=== PATIENT | male | born 1950 | race Two or more races ===

== ENCOUNTER 2020-01-28 08:30 | Day surgery (SDC) | payer MEDICARE, BC ==
[~2020-01-28] VITALS: Ht 185.4 cm; Wt 79.6 kg
[~2020-01-28 08:30] MED LIST: ASPI325EC PO; ASPI81CH; CARV6.25 PO; CYCL10 PO; FOLBIC RF TABL1 EACH PO; HYDCHL12.5 PO; METF500 PO; MULVITB&C PO; NEBI10 PO; OXYACE5T PO; OXYC30ER PO; PERI4; PRED10 PO; TESTOSTERONE TOP; VALS80 PO; VITAMIN D31 ML PO
[2020-01-28] MEDS ORDERED: INSULANPEN SC (09:30)
[2020-01-28] MEDS ORDERED: LIRA0.6P SC (09:31)
--- NOTE | 2020-01-28 09:57 | NUR ---
Ambulatory in Day Surgery History, Chart, Medications and Allergies reviewed before start of procedure. Lungs clear T/O to Auscultation. Patient confirms NPO status and agrees with scheduled surgery.
--- NOTE | 2020-01-28 14:01 | NUR ---
Discharge instructions reviewed with patient. Patient verbalizes understanding. Copy given to patient to take home. Discharged via wheelchair to private car for ride home.
== END 2020-01-28 22:44 | disposition home or self-care (01) ==
LOC: ORSCMMR 08:30 → ORD 10:00 → ORSCMMR 10:00
PROVIDERS: Surgery
PROC: 05H533Z Insertion of Infusion Device into Right Subclavian Vein, Percutaneous Approach (ICD-10-PCS; principal; 2020-01-28 10:00)
PROC: B5161ZA Fluoroscopy of Right Subclavian Vein using Low Osmolar Contrast, Guidance (ICD-10-PCS; principal; 2020-01-28 10:00)
DX: C25.3 Malignant neoplasm of pancreatic duct (principal); I10 Essential (primary) hypertension; J44.9 Chronic obstructive pulmonary disease, unspecified; Z87.891 Personal history of nicotine dependence; B19.20 Unspecified viral hepatitis C without hepatic coma; E11.40 Type 2 diabetes mellitus with diabetic neuropathy, unspecified; Z79.4 Long term (current) use of insulin; Z79.84 Long term (current) use of oral hypoglycemic drugs; Z79.899 Other long term (current) drug therapy
CPT/HCPCS: 77001; 82947; C1788; J0690; J1100; J1642; J2250; J2405; J2704; J3010; J7120

== ENCOUNTER 2020-10-17 12:15 | Emergency (ER) | payer MEDICARE, BC ==
[~2020-10-17] VITALS: Ht 185.4 cm; Wt 73.9 kg
[~2020-10-17 12:15] MED LIST changes: +INSULANPEN SC; +LIRA0.6P SC
[2020-10-17] MEDS ORDERED: HYDMOR2 PO (12:44)
== END 2020-10-17 13:00 | disposition home or self-care (01) ==
LOC: ER 12:15
DX: M54.31 Sciatica, right side (principal); I10 Essential (primary) hypertension; J44.9 Chronic obstructive pulmonary disease, unspecified; Z79.4 Long term (current) use of insulin; Z79.899 Other long term (current) drug therapy; Z87.891 Personal history of nicotine dependence; Z88.2 Allergy status to sulfonamides; Z88.8 Allergy status to other drugs, medicaments and biological substances
CPT/HCPCS: 96374; 99282-25; J1885

== ENCOUNTER 2020-10-21 12:40 | Day surgery (SDC) | payer MEDICARE, BC ==
[~2020-10-21] VITALS: Ht 185.4 cm; Wt 74.8 kg
[~2020-10-21 12:40] MED LIST changes: +HYDMOR2 PO
--- NOTE | 2020-10-21 14:34 | NUR ---
10/21/20 1434 Blayne Peacock [address] CREWS PER ORDER.
== END 2020-10-21 15:15 | disposition home or self-care (01) ==
LOC: ORSCSDS 12:40
PROVIDERS: Orthopaedic Surgery
PROC: 3E0R33Z Introduction of Anti-inflammatory into Spinal Canal, Percutaneous Approach (ICD-10-PCS; principal; 2020-10-21 14:00)
DX: M54.5 Low back pain (principal); M54.16 Radiculopathy, lumbar region; M48.062 Spinal stenosis, lumbar region with neurogenic claudication; I10 Essential (primary) hypertension; F41.8 Other specified anxiety disorders; E05.90 Thyrotoxicosis, unspecified without thyrotoxic crisis or storm; E11.9 Type 2 diabetes mellitus without complications; J44.9 Chronic obstructive pulmonary disease, unspecified; Z87.19 Personal history of other diseases of the digestive system; E03.9 Hypothyroidism, unspecified; Z79.84 Long term (current) use of oral hypoglycemic drugs; Z79.899 Other long term (current) drug therapy
CPT/HCPCS: 82947; J1040

== ENCOUNTER 2020-11-21 07:25 | Emergency (ER) | payer MEDICARE, BC ==
[~2020-11-21] VITALS: Ht 185.4 cm; Wt 74.8 kg
[2020-11-21] MEDS ORDERED: BASAGLAR K100 UNIT/1 SC (07:46)
[2020-11-21] MEDS ORDERED: HYDROCODONE-AC1 EA11 PO (08:10)
[2020-11-22] MEDS ORDERED: Norco 5-325 Ta1 EACH PO (17:44)
[2020-11-22] MEDS ORDERED: IBUP800 PO (17:44)
== END 2020-11-21 08:50 | disposition home or self-care (01) ==
LOC: ER 07:25
DX: M54.31 Sciatica, right side (principal); I10 Essential (primary) hypertension; J44.9 Chronic obstructive pulmonary disease, unspecified; Z87.891 Personal history of nicotine dependence
CPT/HCPCS: 99283

== ENCOUNTER 2020-11-22 16:37 | Emergency (ER) | payer MEDICARE, BC ==
[~2020-11-22] VITALS: Ht 185.4 cm; Wt 74.8 kg
[~2020-11-22 16:37] MED LIST changes: +BASAGLAR K100 UNIT/1 SC; +HYDROCODONE-AC1 EA11 PO
[2020-11-22] MEDS ORDERED: IBUP800 PO (17:44)
[2020-11-22] MEDS ORDERED: Norco 5-325 Ta1 EACH PO (17:44)
== END 2020-11-22 18:30 | disposition home or self-care (01) ==
LOC: ER 16:37
DX: S42.202A Unspecified fracture of upper end of left humerus, initial encounter for closed fracture (principal); I10 Essential (primary) hypertension; J44.9 Chronic obstructive pulmonary disease, unspecified; Z88.8 Allergy status to other drugs, medicaments and biological substances; Z88.2 Allergy status to sulfonamides; Z79.899 Other long term (current) drug therapy; Z79.4 Long term (current) use of insulin; Z87.891 Personal history of nicotine dependence; W07.XXXA Fall from chair, initial encounter
CPT/HCPCS: 29105; 73030; 96372-59; 99283-25; J3010

== ENCOUNTER 2021-09-17 16:01 | Inpatient (IN) | payer MEDICARE, BC ==
[~2021-09-17] VITALS: Ht 185.4 cm; Wt 73.3 kg
[~2021-09-17 16:01] MED LIST changes: +IBUP800 PO; +Norco 5-325 Ta1 EACH PO; -VITAMIN D31 ML PO; +VITAMIN D310 MC4 PO
[2021-09-17 17:54] LABS: Source, Urine Clean Catch
[2021-09-17 17:56] LABS: Hematocrit 44.7 % (37.0-53.0); Hemoglobin 15.6 g/dL (13.5-17.5); Mean Corpuscular HGB 31.5 pg (26.0-34.0); Mean Corpuscular HGB Conc 34.9 g/dL (31.5-36.5); Mean Corpuscular Volume 90 fL (80-100); Mean Platelet Volume 9.7 fL (9.1-12.4); Platelet Count 451 K/mm3 (150-400); RDW Coefficient Variation 13.2 % (11.7-14.2); RDW Standard Deviation 43.8 fL (35.1-46.3); Red Blood Cell Count 4.96 M/mm3 (4.30-5.90)
[2021-09-17 17:57] LABS: BASOPHILS ABSOLUTE AUTO 0.13 K/mm3 (0.00-0.23); BASOPHILS PERCENT AUTO 0 % (0-2); EOSINOPHILS PERCENT AUTO 0 % (0-6); IMMATURE GRAN ABSOLUTE AUTO 0.35 K/mm3 (0.00-0.10); IMMATURE GRAN PERCENT AUTO 1 % (0-1); LYMPHOCYTES ABSOLUTE AUTO 1.58 K/mm3 (0.84-5.20); LYMPHOCYTES PERCENT AUTO 5 % (21-46); MONOCYTES PERCENT AUTO 9 % (4-13); NEUTROPHILS ABSOLUTE AUTO 28.92 K/mm3 (1.96-9.15); NEUTROPHILS PERCENT AUTO 85 % (41-73); White Blood Cell Count 33.88 K/mm3 (4.00-11.30)
[2021-09-17 18:03] LABS: Appearance, Urine Hazy (Clear); Bilirubin, Urine Neg (Neg); Blood, Urine 5+ (Neg); Color, Urine Yellow (P-Yellow); Glucose Qualitative, Urine 4+ (Neg); Ketones, Urine 1+ (Neg); Leukocyte Esterase, Urine 2+ (Neg); Nitrite, Urine Neg (Neg); Protein, Urine 3+ (Neg); Urobilinogen, Urine NORM (Normal)
[2021-09-17 18:20] LABS: Alanine Aminotransfer (ALT/SGP 23 U/L (12-78); Albumin, Blood 3.8 g/dL (3.4-5.0); Alk Phos 63 U/L (50-136); Anion Gap 6 mmol/L (6-16); Aspartate Aminotrans (AST/SGOT 12 U/L (12-37); Bilirubin, Total 1.1 mg/dL (0.1-1.0); Blood Urea Nitrogen 18 mg/dL (8-24); Bun/Creatinine Ratio 30.7 (12.0-20.0); CO2, Blood 23 mmol/L (21-32); Calcium, Blood 9.3 mg/dL (8.5-10.1); Chloride, Blood 105 mmol/L (98-108); Creatinine, Blood 0.59 mg/dL (0.60-1.20); Globulin, Blood 3.9 g/dL (2.2-4.0); Glomerular Filtration Rate >60 (60-); Glucose, Blood 287 mg/dL (70-99); Potassium, Blood 3.4 mmol/L (3.5-5.5); Sodium, Blood 134 mmol/L (136-145); Total Protein, Blood 7.7 g/dL (6.4-8.2)
[2021-09-17 18:41] LABS: White Blood Cells, Urine 25-50 /hpf (0-5)
[2021-09-17 18:42] LABS: Bacteria Many /hpf; Squamous Epithelial Cells Few /hpf (Few)
[2021-09-17 20:44] LABS: Influenza A, PCR NEGATIVE (NEGATIVE); Influenza B, PCR NEGATIVE (NEGATIVE); Resp Syncytial Virus, PCR NEGATIVE (NEGATIVE); SARS-Cov-2 (COVID-19) PCR, MMC NEGATIVE (NEGATIVE)
[2021-09-18 05:50] LABS: Hematocrit 40.2 % (37.0-53.0); Mean Corpuscular HGB 31.7 pg (26.0-34.0); Mean Corpuscular HGB Conc 34.8 g/dL (31.5-36.5); Mean Corpuscular Volume 91 fL (80-100); Mean Platelet Volume 9.7 fL (9.1-12.4); Platelet Count 368 K/mm3 (150-400); RDW Coefficient Variation 13.4 % (11.7-14.2); RDW Standard Deviation 45.6 fL (35.1-46.3); Red Blood Cell Count 4.42 M/mm3 (4.30-5.90); White Blood Cell Count 34.57 K/mm3 (4.00-11.30)
[2021-09-18 06:16] LABS: BAND PERCENT MAN 8 % (0-8); BASOPHILS ABSOLUTE MAN 0.34 K/mm3 (0.00-0.23); BASOPHILS PERCENT MAN 1 % (0-2); EOSINOPHILS PERCENT MAN 0 % (0-6); LYMPHOCYTES ABSOLUTE MAN 1.72 K/mm3 (0.84-5.20); LYMPHOCYTES PERCENT MAN 5 % (21-46); MONOCYTES ABSOLUTE MAN 2.41 K/mm3 (0.16-1.47); MONOCYTES PERCENT MAN 7 % (4-13); MYELOCYTE ABSOLUTE MAN 0.34 K/mm3 (0.00-0.00); MYELOCYTE PERCENT MAN 1 % (0-0); NEUTROPHILS ABSOLUTE MAN 29.73 K/mm3 (1.96-9.15); SEG NEUTROPHILS PERCENT MAN 78 % (41-73); TOTAL CELLS COUNTED 100
[2021-09-18 06:45] LABS: Alanine Aminotransfer (ALT/SGP 20 U/L (12-78); Albumin, Blood 2.9 g/dL (3.4-5.0); Alk Phos 69 U/L (50-136); Anion Gap 9 mmol/L (6-16); Aspartate Aminotrans (AST/SGOT 12 U/L (12-37); Bilirubin, Total 1.1 mg/dL (0.1-1.0); Blood Urea Nitrogen 14 mg/dL (8-24); Bun/Creatinine Ratio 25.5 (12.0-20.0); CO2, Blood 23 mmol/L (21-32); Calcium, Blood 8.6 mg/dL (8.5-10.1); Chloride, Blood 106 mmol/L (98-108); Creatinine, Blood 0.55 mg/dL (0.60-1.20); Glomerular Filtration Rate >60 (60-); Glucose, Blood 243 mg/dL (70-99); Potassium, Blood 3.7 mmol/L (3.5-5.5); Sodium, Blood 138 mmol/L (136-145); Total Protein, Blood 5.9 g/dL (6.4-8.2)
[2021-09-18] MEDS ORDERED: OZEMPIC1 MG/0.71 SC (12:39)
--- NOTE | 2021-09-18 18:47 | NUR ---
SHIFT SUMMARY: PATIENT ADMIT AT 1220 TODAY ABLE TO STAND AND TRANSFER TO BED. ALERT AND ORIENTED X4. ABLE TO MOVE AND TURN SELF IN BED. PERRLA. 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 REPORTS NUMBNESS AND TINGLING IN HANDS AND FEET FROM CHRONIC NEUROPATHY. TELE SHOWING SINUS TACH WITH HR 90-110'S. DENIES CHEST PAIN/PRESSURE. VITAL SIGNS STABLE. ON ROOM AIR, LUNGS SOUNDING CLEAR. NO COUGH AT THIS TIME. MODERATE ABDOMINAL DISTENTION. CHOLECYSTECTOMY [address] SCAN OF ABDOMEN TODAY. NO NAUSEA. USING URINAL FREQUENTLY IN BED. UTI SYMPTOMS OF URGENCY AND FREQUENCY. SKIN OVERALL FRAGILE AND PALE. ACHS BLOOD SUGARS. HOME MEDS ORDERED. ANTIBIOTICS INFUSED. PATIENT COMPLAINS OF SCIATICA PAIN, MEDICATED PER EMAR AND PAIN SLOWLY DECREASING. CALL LIGHT IN REACH. DENIES NEEDS AT THIS TIME. WILL CONTINUE TO MONITOR AND REPORT OFF TO ONCOMING RN.
[2021-09-19 04:02] LABS: BASOPHILS ABSOLUTE AUTO 0.13 K/mm3 (0.00-0.23); BASOPHILS PERCENT AUTO 1 % (0-2); EOSINOPHILS PERCENT AUTO 2 % (0-6); Hematocrit 37.1 % (37.0-53.0); Hemoglobin 12.8 g/dL (13.5-17.5); IMMATURE GRAN ABSOLUTE AUTO 0.21 K/mm3 (0.00-0.10); IMMATURE GRAN PERCENT AUTO 1 % (0-1); LYMPHOCYTES ABSOLUTE AUTO 1.53 K/mm3 (0.84-5.20); LYMPHOCYTES PERCENT AUTO 6 % (21-46); MONOCYTES ABSOLUTE AUTO 1.81 K/mm3 (0.16-1.47); MONOCYTES PERCENT AUTO 7 % (4-13); Mean Corpuscular HGB 31.4 pg (26.0-34.0); Mean Corpuscular HGB Conc 34.5 g/dL (31.5-36.5); Mean Corpuscular Volume 91 fL (80-100); NEUTROPHILS PERCENT AUTO 84 % (41-73); Platelet Count 328 K/mm3 (150-400); RDW Coefficient Variation 13.2 % (11.7-14.2); Red Blood Cell Count 4.08 M/mm3 (4.30-5.90); White Blood Cell Count 26.08 K/mm3 (4.00-11.30)
[2021-09-19 04:44] LABS: Alanine Aminotransfer (ALT/SGP 21 U/L (12-78); Albumin, Blood 2.4 g/dL (3.4-5.0); Albumin/Globulin Ratio 0.8 (0.8-1.8); Alk Phos 64 U/L (50-136); Anion Gap 8 mmol/L (6-16); Aspartate Aminotrans (AST/SGOT 13 U/L (12-37); Bilirubin, Direct 0.3 mg/dL (0.0-0.3); Bilirubin, Indirect 0.6 mg/dL (0.1-0.7); Bilirubin, Total 0.9 mg/dL (0.1-1.0); Blood Urea Nitrogen 11 mg/dL (8-24); Bun/Creatinine Ratio 22.6 (12.0-20.0); CO2, Blood 25 mmol/L (21-32); Calcium, Blood 8.3 mg/dL (8.5-10.1); Chloride, Blood 104 mmol/L (98-108); Creatinine, Blood 0.49 mg/dL (0.60-1.20); Glomerular Filtration Rate >60 (60-); Glucose, Blood 199 mg/dL (70-99); Potassium, Blood 3.7 mmol/L (3.5-5.5); Sodium, Blood 137 mmol/L (136-145); Total Protein, Blood 5.4 g/dL (6.4-8.2)
--- NOTE | 2021-09-19 09:25 | NUR ---
PATIENT ALERT AND ORIENTED X4. NEURO WNL. DEAF IN LEFT EAR. [place] IN RIGHT EAR. NUMBNESS AND TINGLING TO HANDS AND FEET. SCIATICA PAIN. ON ROOM AIR, LUNGS SOUNDING CLEAR. TELE SHOWING SINUS RHYTHM WITH HR 60-70'S. DENIES CHEST PAIN/PRESSURE. VITAL SIGNS STABLE. NO SIGNS OF EDEMA. DENIES ABDOMINAL PAIN/NAUSEA. MODERATE ABDOMINAL DISTENTION, PATIENT STATES NORMAL. BOWEL CARE MEDS. USING URINAL IN BED. SMALL AMOUNTS OF URINE SAVANNA COLORED. CALL LIGHT IN REACH. SBA ASSIST. DENTURES AND GLASSES IN PLACE. WILL CONTIUE TO [facility]. ACHS BLOOD SUGARS. DENIES NEEDS AT THIS TIME.
--- NOTE | 2021-09-19 13:34 | NUR ---
UPDATE: BP ELEVATED. DR. DAMON CALLED AND UPDATED. NEW ORDERS PLACE. HYDRALAZINE GIVEN. UPON RECHECK, BP WNL. NEW IV PLACED. PATIENT DENIES NEEDS AT THIS TIME. CALL LIGHT IN REACH. WILL CONTINUE TO MONITOR.
--- NOTE | 2021-09-19 18:58 | NUR ---
SHIFT SUMMARY: NO ACUTE CHANGES. REMAINS ON ROOM AIR. ANTIBIOTICS INFUSED. CONTINUES TO HAVE SCIATICA AND NECK PAIN. PAIN MEDICATIONS HELPING. TELE SHOWING HR UP TO 130'S X1 WHEN UP WALKING AROUND ROOM. DENIES NEEDS AT THIS TIME. WILL CONTINUE TO MONITOR AND REPORT OFF.
--- NOTE | 2021-09-19 22:05 | NUR ---
ASSUMED CARE OF PATIENT AT 1900. A/OX4. REPORTS CHRONIC BACK PAIN 04/27 THAT IS BEING MEDICATED PER EMAR. DEAF IN L EAR AND A BIT [place] IN R EAR. REPORTS HX OF NEUROPATHY W/ NUMBNESS/TINGLING IN EXTREMITIES. MAINTAINS ABOVE 95% ON RA. BP ELEVATED WITH SBP IN 180'S, MEDICATED PER EMAR. REPORTS ABLE TO HAVE BM TODAY, BUT STILL HAS URINARY URG/FREQ WITH CLEAR/YELLOW URINE OUTPUT IN URINAL. REDNESS/SWELLING IN R ARM DUE TO OLD IV THAT WAS DC'D. WILL UPDATE CHANGES OCCUR.
[2021-09-20 03:57] LABS: BASOPHILS ABSOLUTE AUTO 0.07 K/mm3 (0.00-0.23); BASOPHILS PERCENT AUTO 1 % (0-2); EOSINOPHILS ABSOLUTE AUTO 0.22 K/mm3 (0.00-0.68); EOSINOPHILS PERCENT AUTO 2 % (0-6); Hematocrit 38.9 % (37.0-53.0); Hemoglobin 13.5 g/dL (13.5-17.5); IMMATURE GRAN PERCENT AUTO 1 % (0-1); LYMPHOCYTES ABSOLUTE AUTO 0.74 K/mm3 (0.84-5.20); LYMPHOCYTES PERCENT AUTO 6 % (21-46); MONOCYTES ABSOLUTE AUTO 1.06 K/mm3 (0.16-1.47); MONOCYTES PERCENT AUTO 8 % (4-13); Mean Corpuscular HGB 30.8 pg (26.0-34.0); Mean Corpuscular HGB Conc 34.7 g/dL (31.5-36.5); Mean Corpuscular Volume 89 fL (80-100); Mean Platelet Volume 10.1 fL (9.1-12.4); NEUTROPHILS ABSOLUTE AUTO 11.06 K/mm3 (1.96-9.15); NEUTROPHILS PERCENT AUTO 83 % (41-73); Platelet Count 358 K/mm3 (150-400); RDW Coefficient Variation 13.1 % (11.7-14.2); RDW Standard Deviation 42.9 fL (35.1-46.3); Red Blood Cell Count 4.38 M/mm3 (4.30-5.90); White Blood Cell Count 13.25 K/mm3 (4.00-11.30)
[2021-09-20 04:21] LABS: Albumin, Blood 2.5 g/dL (3.4-5.0); Anion Gap 8 mmol/L (6-16); Blood Urea Nitrogen 10 mg/dL (8-24); Bun/Creatinine Ratio 19.8 (12.0-20.0); CO2, Blood 25 mmol/L (21-32); Calcium, Blood 8.4 mg/dL (8.5-10.1); Chloride, Blood 102 mmol/L (98-108); Creatinine, Blood 0.51 mg/dL (0.60-1.20); Glomerular Filtration Rate >60 (60-); Glucose, Blood 198 mg/dL (70-99); Phosphorus, Blood 2.6 mg/dL (2.5-4.9); Potassium, Blood 3.1 mmol/L (3.5-5.5); Sodium, Blood 135 mmol/L (136-145)
[2021-09-20] MEDS ORDERED: LISI5 PO (14:50)
[2021-09-20] MEDS ORDERED: AMOCLA875 PO (14:50)
[2021-09-20] MEDS ORDERED: VISBIOME 112.51 EACH PO (14:54)
--- NOTE | 2021-09-20 15:37 | NUR ---
PT DISCHARGE TO HOME WITH DISCHARGE ORDERS. PT WAS SEEN BY DR WANG PRIOR TO DISCHARGE, STARTED ON AUGMENTIN PO FOR UTI AND POSS BLOOD INFECTION, PT TO FOLLOW UP WITH DR WANG OUTPATIENT. DISCHARGE INSTRUCTION AND MEDICATION DISCLOSED WITH THE PT, PT VERBALIZED UNDERSTANDING. ALL BELONGINGS SENT WITH PT, ACCOMPANIED AMBULATORY FOR TRANSPORT.
[2021-09-21 18:05] LABS: Performing Lab LCA; Test Name 183402 182857
== END 2021-09-20 15:16 | disposition home or self-care (01) | DRG 872 ==
LOC: ER 16:01 → ERHOLD 20:34 → PCU 20:34
PROVIDERS: Emergency Medicine; Family Medicine; Physician Assistant; ADMIT Internal Medicine
DX: A41.51 Sepsis due to Escherichia coli [E. coli] (principal); N39.0 Urinary tract infection, site not specified; E87.1 Hypo-osmolality and hyponatremia; Z20.822 Contact with and (suspected) exposure to COVID-19; E87.6 Hypokalemia; K59.00 Constipation, unspecified; D64.9 Anemia, unspecified; I10 Essential (primary) hypertension; E89.0 Postprocedural hypothyroidism; N40.0 Benign prostatic hyperplasia without lower urinary tract symptoms; J44.9 Chronic obstructive pulmonary disease, unspecified; Z90.49 Acquired absence of other specified parts of digestive tract; E11.65 Type 2 diabetes mellitus with hyperglycemia; Z85.07 Personal history of malignant neoplasm of pancreas; Z90.411 Acquired partial absence of pancreas; Z88.2 Allergy status to sulfonamides; Z88.8 Allergy status to other drugs, medicaments and biological substances; Z28.21 Immunization not carried out because of patient refusal; Z79.4 Long term (current) use of insulin; Z79.899 Other long term (current) drug therapy; Z98.890 Other specified postprocedural states
CPT/HCPCS: 0241U; 36415; 71045; 74177; 80053; 80069; 81001; 82248; 82947; 83605; 83690; 84100; 85025; 87040; 87077; 87086; 87186; 93005; 93010; 96365; 96375; 99285-25; A9270; J0360; J0696; J1650; J1815; J2405; J3480; J7030; Q9967

== ENCOUNTER 2024-09-26 18:25 | Emergency (ER) | payer MEDICARE, BC ==
[~2024-09-26] VITALS: Ht 185.4 cm; Wt 70.3 kg
[~2024-09-26 18:25] MED LIST changes: +AMOCLA875 PO; +BASAGLAR K100 UNIT/3 SC; +LISI5 PO; +OZEMPIC1 MG/0.71 SC; +VISBIOME 112.51 EACH PO
[2024-09-26 19:17] LABS: BASOPHILS ABSOLUTE AUTO 0.05 K/mm3 (0.00-0.23); BASOPHILS PERCENT AUTO 0 % (0-2); EOSINOPHILS PERCENT AUTO 0 % (0-6); Hematocrit 40.6 % (37.0-53.0); Hemoglobin 13.9 g/dL (13.5-17.5); IMMATURE GRAN ABSOLUTE AUTO 0.05 K/mm3 (0.00-0.10); IMMATURE GRAN PERCENT AUTO 0 % (0-1); LYMPHOCYTES ABSOLUTE AUTO 1.54 K/mm3 (0.84-5.20); LYMPHOCYTES PERCENT AUTO 12 % (21-46); MONOCYTES ABSOLUTE AUTO 0.47 K/mm3 (0.16-1.47); MONOCYTES PERCENT AUTO 4 % (4-13); Mean Corpuscular HGB 30.8 pg (26.0-34.0); Mean Corpuscular HGB Conc 34.2 g/dL (31.5-36.5); Mean Corpuscular Volume 90 fL (80-100); Mean Platelet Volume 10.3 fL (9.1-12.4); NEUTROPHILS ABSOLUTE AUTO 10.57 K/mm3 (1.96-9.15); NEUTROPHILS PERCENT AUTO 83 % (41-73); Platelet Count 328 K/mm3 (150-400); RDW Coefficient Variation 12.2 % (11.7-14.2); RDW Standard Deviation 40.3 fL (35.1-46.3); Red Blood Cell Count 4.51 M/mm3 (4.30-5.90); White Blood Cell Count 12.68 K/mm3 (4.00-11.30)
[2024-09-26 19:35] LABS: Albumin, Blood 3.7 g/dL (3.4-5.0); Albumin/Globulin Ratio 0.9 (0.8-1.8); Bilirubin, Total 0.7 mg/dL (0.1-1.0); Bun/Creatinine Ratio 22.9 (12.0-20.0); Calcium, Blood 9.7 mg/dL (8.5-10.1); Creatinine, Blood 0.74 mg/dL (0.60-1.20); Potassium, Blood 3.8 mmol/L (3.5-5.5); Total Protein, Blood 7.7 g/dL (6.4-8.2)
[2024-09-26] MEDS ORDERED: Ketorolac Tromethamine 30mg Vial IV ONE (23:35)
[2024-09-27] MEDS ORDERED: RX Prepack 6 Tabs Oxycodone 5mg UD ONE (02:45)
[2024-09-27] MEDS ORDERED: NS 1,000 ML IV SCH (02:45)
[2024-09-27] MEDS ORDERED: Roxicodone15 MG PO (02:46)
[2024-09-27 03:04] VITALS: BP 189/106
== END 2024-09-27 03:45 | disposition home or self-care (01) ==
LOC: ER 18:25
PROVIDERS: Student in an Organized Health Care Education/Training Program
DX: R07.89 Other chest pain (principal); C25.9 Malignant neoplasm of pancreas, unspecified; I10 Essential (primary) hypertension; J44.9 Chronic obstructive pulmonary disease, unspecified; Z79.4 Long term (current) use of insulin; Z79.84 Long term (current) use of oral hypoglycemic drugs; Z79.899 Other long term (current) drug therapy; Z88.2 Allergy status to sulfonamides; Z88.8 Allergy status to other drugs, medicaments and biological substances
CPT/HCPCS: 71046; 71260; 80053; 83690; 84484; 85025; 93005; 93010; 96374; 99285-25; A9270; J1885; J7030; Q9967

== ENCOUNTER 2024-12-08 13:34 | Observation (INO) | payer MEDICARE, BC ==
[~2024-12-08] VITALS: Ht 185.4 cm; Wt 54.4 kg
[~2024-12-08 13:34] MED LIST changes: -BASAGLAR K100 UNIT/3 SC; +Roxicodone15 MG PO
[2024-12-08] MEDS ORDERED: Ativan1 MG PO (15:08)
[2024-12-08] MEDS ORDERED: Seroquel Xr50 MG PO (15:09)
[2024-12-08] MEDS ORDERED: OLAN5 PO (15:09)
[2024-12-08] MEDS ORDERED: HYDMOR4 PO (15:11)
[2024-12-08 16:47] LABS: Source, Urine Clean Catch
[2024-12-08 16:53] LABS: Bilirubin, Urine Neg (Neg); Blood, Urine 2+ (Neg); Glucose Qualitative, Urine 4+ (Neg); Ketones, Urine Neg (Neg); Leukocyte Esterase, Urine 3+ (Neg); Nitrite, Urine Neg (Neg); Protein, Urine 1+ (Neg); Specific Gravity, Urine 1.015 (1.003-1.022); Urobilinogen, Urine NORM (Normal)
[2024-12-08 16:56] LABS: BASOPHILS ABSOLUTE AUTO 0.07 K/mm3 (0.00-0.23); BASOPHILS PERCENT AUTO 1 % (0-2); EOSINOPHILS ABSOLUTE AUTO 0.08 K/mm3 (0.00-0.68); EOSINOPHILS PERCENT AUTO 1 % (0-6); Hematocrit 35.1 % (37.0-53.0); IMMATURE GRAN ABSOLUTE AUTO 0.04 K/mm3 (0.00-0.10); IMMATURE GRAN PERCENT AUTO 0 % (0-1); LYMPHOCYTES ABSOLUTE AUTO 1.41 K/mm3 (0.84-5.20); LYMPHOCYTES PERCENT AUTO 13 % (21-46); MONOCYTES ABSOLUTE AUTO 0.61 K/mm3 (0.16-1.47); MONOCYTES PERCENT AUTO 6 % (4-13); Mean Corpuscular HGB 31.3 pg (26.0-34.0); Mean Corpuscular HGB Conc 34.2 g/dL (31.5-36.5); Mean Corpuscular Volume 91 fL (80-100); Mean Platelet Volume 11.3 fL (9.1-12.4); NEUTROPHILS ABSOLUTE AUTO 8.34 K/mm3 (1.96-9.15); NEUTROPHILS PERCENT AUTO 79 % (41-73); Platelet Count 351 K/mm3 (150-400); RDW Coefficient Variation 14.6 % (11.7-14.2); RDW Standard Deviation 48.7 fL (35.1-46.3); Red Blood Cell Count 3.84 M/mm3 (4.30-5.90); White Blood Cell Count 10.55 K/mm3 (4.00-11.30)
[2024-12-08 17:00] LABS: Appearance, Urine Hazy (Clear); Color, Urine Yellow (P-Yellow); White Blood Cells, Urine 25-50 /hpf (0-5)
[2024-12-08 17:01] LABS: Bacteria Few /hpf; Squamous Epithelial Cells Rare /hpf (Few)
[2024-12-08 17:04] LABS: U Amphetamine Screen Not Detected; U Barbituate Screen Not Detected; U Benzodiazapine Screen DETECTED; U Buprenorphine Screen Not Detected; U Cannabinoids Screen Not Detected; U Cocaine Screen Not Detected; U Methadone Screen Not Detected; U Methamphetamine Screen Not Detected; U Opiates Screen DETECTED; U Oxycodone Screen Not Detected; U Phencyclidine Screen Not Detected
[2024-12-08 17:05] LABS: Acetaminophen, Random <2.0 ug/mL (10.0-30.0); Alanine Aminotransfer (ALT/SGP 19 U/L (12-78); Albumin, Blood 3.2 g/dL (3.4-5.0); Albumin/Globulin Ratio 1.1 (0.8-1.8); Alk Phos 71 U/L (50-136); Anion Gap 15 mmol/L (3-11); Aspartate Aminotrans (AST/SGOT 18 U/L (12-37); Bilirubin, Total 0.7 mg/dL (0.1-1.0); Blood Urea Nitrogen 11 mg/dL (8-24); Bun/Creatinine Ratio 17.9 (12.0-20.0); CO2, Blood 24 mmol/L (21-32); Calcium, Blood 8.7 mg/dL (8.5-10.1); Chloride, Blood 98 mmol/L (98-108); Creatinine, Blood 0.61 mg/dL (0.60-1.20); Ethanol (Alcohol), Blood, Med <3 mg/dL; Glomerular Filtration Rate 100 (60-); Glucose, Blood 418 mg/dL (70-99); Potassium, Blood 3.7 mmol/L (3.5-5.5); Salicylate <1.7 mg/dL (2.8-20.0); Sodium, Blood 133 mmol/L (136-145); Total Protein, Blood 6.2 g/dL (6.4-8.2)
[2024-12-08] MEDS ORDERED: HYDROmorphone HCl 4 MG Tab PO ONE (20:10)
[2024-12-08] MEDS ORDERED: HYDROmorphone HCl 2 MG Tab PO ONE (20:15)
[2024-12-08] MEDS ORDERED: HYDROmorphone HCl 2 MG Tab PO PRN (20:40)
[2024-12-08] MEDS ORDERED: Cefdinir 300 MG Cap PO SCH (21:00)
[2024-12-09] MEDS ORDERED: OxyCODONE HCL 5 MG TAB PO PRN (18:55)
[2024-12-09] MEDS ORDERED: FentaNYL Citrate 50 MCG/ML 2 ML Injection IV PRN (18:55)
[2024-12-09] MEDS ORDERED: OxyCODONE HCL 10 MG TABCR PO SCH (18:59)
[2024-12-09] MEDS ORDERED: LORazepam 1 MG Tab PO PRN ×2 (19:00→21:25)
[2024-12-09] MEDS ORDERED: Ketorolac Tromethamine 15mg Vial IV ONE (19:00)
[2024-12-09] MEDS ORDERED: QUEtiapine Fumarate 25 MG Tab PO PRN (19:00)
[2024-12-09] MEDS ORDERED: FentaNYL Citrate 50 MCG/ML 2 ML Injection IV ONE (19:00)
[2024-12-09] MEDS ORDERED: Ketorolac Tromethamine 30mg Vial IV ONE (19:25)
[2024-12-09] MEDS ORDERED: Docusate Sodium/Senna 1 Tab PO SCH (21:00)
[2024-12-09] MEDS ORDERED: QUEtiapine Fumarate 50 MG TAB PO SCH (21:00)
[2024-12-10 05:55] VITALS: BP 152/80
[2024-12-10] MEDS ORDERED: Insulin Glargine-Yfgn 100 Unit/mL 3 ML SYR SC ONE (07:00)
[2024-12-10 07:07] VITALS: BP 131/78
[2024-12-10] MEDS ORDERED: Insulin Human Lispro 100 Units/ML 3ML Syringe SC SCH (07:30)
[2024-12-10] MEDS ORDERED: Lisinopril 5 MG Tab PO SCH (09:00)
[2024-12-10] MEDS ORDERED: Polyethylene Glycol 3350 17 gm PO SCH (09:00)
[2024-12-10 16:04] VITALS: BP 120/63
--- NOTE | 2024-12-10 17:17 | NUR ---
Spiritual care visit attempted. Patient is lying in bed and resting. He immediately states that he is sleepy and would for me to come back tomorrow. He then asks me about my buddhism affiliation and creditials and determines that tomorrow would still be ok.
--- NOTE | 2024-12-10 18:23 | NUR ---
SHIFT SUMMARY PATIENT ALERT AND INTERACTIVE BUT HAVING PERIODS OF WORD SALAD OR SLOW RESPONSES. PATIENT ANXIOUS AT TIMES AND NOTEABLE TREMORS WHEN ATTEMPTING TO DO THINGS. PATIENT REFUSING INSULIN AND STOOL SOFTENERS. PATIENT STATES "I AM DYING SO WHO CARES" PATIENT REQUESTING PAIN MEDS THROUGHOUT THE DAY. PATIENT MEDICATED PER MAR FOR PAIN AND ANXIETY. PATIENT VERBALIZING THAT HE IS OK WITH NOT GOING BACK HOME BUT DOES WANT TO GO SOMEWHERE THAT IS COMFORTABLE AND CALM.
[2024-12-10 19:17] VITALS: BP 125/79
[2024-12-10 20:45] LABS: Glucose, Blood 544 mg/dL (70-99)
[2024-12-10] MEDS ORDERED: Lactobacil 2-S.Thermo-Bifido 1 1 Cap PO SCH (21:00)
--- NOTE | 2024-12-10 21:02 | NUR ---
ACCU CHECK WAS 475 AT , BUT PT REFUSED TO TAKE INSULIN COVERAGE, MD WAS NOTIFIED AND STATED IF PT WOULD TAKE PO MED HE WOULD ORDER IT. CALL PLACED TO MD PT STATED HE WOULD BE WILLING TO TAKE MED SUCH METFORMIN. SEE MAR FOR RESULTS/DETAILS
[2024-12-10] MEDS ORDERED: GlipiZIDE 5 MG Tab PO ONE (21:30)
--- NOTE | 2024-12-11 03:43 | NUR ---
TRAINING EXECUTIVE SUMMARY VSS. AFFECT AND BEHAVIOR EASILY AGIATED. COOPERATIVE WITH CAARE OF VITAL SIGNS, ACCU CHECKS AND MOST MEDS, BUT VERY ADFAMANT NOT TO TAKE INSULIN FOR HIGH ACCU CHECK. (WAS 475), NOTIFIED AND PO GLIPIZIDE ORDERED X 1 AND PT ACCEPTED IT. HAS BEEN RESTING QUIETLY AT INTERVALS OTHERWISE. 1:1 SITTER NEAR BEDSIDE FOR POTENTIAL BEHAVIORAL ISSUES. CALL LIGHT IN REACH, RAILS UP X 2 AND BED IN LOW POSITION FOR SAFETY. ABLE TO REPOSITION SELF IN BED FOR COMFORT. WILL CONT TO MONITOR
[2024-12-11 04:57] VITALS: BP 123/58
[2024-12-11 08:02] VITALS: BP 124/72
[2024-12-11] MEDS ORDERED: GlipiZIDE 10 MG Tab PO SCH (13:00)
[2024-12-11 14:22] VITALS: BP 137/71
[2024-12-11] MEDS ORDERED: BASAGLAR K100 UNIT/3 SC (17:12)
--- NOTE | 2024-12-11 18:20 | NUR ---
SHIFT SUMMARY PATIENT ALERT AND INTERACTIVE BUT WITHDRAWN. PATIENT ABLE TO AMBULATE IN ROOM INDEPENDENTLY. PATIENT REQUESTING PAIN MEDS PERIODICALLY THROUGHOUT SHIFT. PATIENT COOPERATIVE WITH CARE. PATIENT ASKING TO BE INVOLVED IN PLACEMENT. PATIENT WANTING TO GO SOMEWHERE CALM. PATIENT STATES THAT HIS HOME LIFE IS VERY STRESSFUL. PATIENT REPORTS GLASSES MISSING BUT DOES NOT WANT US TO CALL FAMILY BECAUSE OF ISSUES. PATIENT HAVING LESS WORD SALAD AND ABLE TO GET THOUGHTS OUT TODAY. TREMORS NOTED. PATIENT STATES THAT HE HAS PARKINSONS. PATIENT CONTINUES TO REFUSE INSULIN BUT IS WILLING TO TAKE ORAL DIABETIC MEDS. PATIENT ALSO REFUSING STOOL SOFTENERS AT THIS TIME
[2024-12-11 19:09] VITALS: BP 143/73
--- NOTE | 2024-12-11 21:30 | NUR ---
BEDTIME CBG 355, HOSPITALIST NOTIFIED AND 4 UNITS SHORT ACTING GIVEN PER SLIDING SCALE.
[2024-12-12 03:35] VITALS: BP 159/98
--- NOTE | 2024-12-12 05:26 | NUR ---
SHIFT SUMMARY NOC PT A/O X 3. FORGETFUL AND STRUGGLES TO FIND WORDS AT TIMES. PT HS CBG 355 AND PT REFUSED INSULIN. PT RECEIVING PAIN RX Q2H FOR PAIN MANAGEMENT. PT ALSO GIVNE ATIVAN X 1 FOR ANXIETY. PT HAS NO IV ACCESS ORDER IN PLACE. PT HAS BEEN ACCEPTED TO [facility], BUT WAITING ON BED SPACE. PT CURRENTLY RESTING WITH BED IN LOWEST POSITION, AND CALL LIGHT WITHIN
[2024-12-12 07:59] VITALS: BP 162/81
[2024-12-12 15:31] VITALS: BP 162/73
--- NOTE | 2024-12-12 18:00 | NUR ---
SHIFT SUMMARY PT ALERT, CONFUSED AT TIMES. HAVING PERIODS EXPRESSING NEEDS AND WORD SALAD. PATIENT ABLE TO AMBULATE IN ROOM INDEPENDENTLY. PATIENT REQUESTING PAIN MEDS FREQUENTLY THROUGHOUT SHIFT. SON IN FOR VISIT AND BROUGHT SOME SWEATS FOR PATIENT. PATIENT CONTINUES TO REFUSE STOOL SOFTENERS AND INSULIN BUT WILLING TO TAKE ALL OTHER MEDICATIONS. PATIENT NEEDING REMINDED WHEN NEXT PAIN MEDICATION AND ANXIETY MEDICATION DOSES ARE AVAILABLE. PATIENT EATING AND DRINKING,
[2024-12-12 21:00] VITALS: BP 150/78
[2024-12-13 02:20] VITALS: BP 157/85
--- NOTE | 2024-12-13 05:27 | NUR ---
SHIFT SUMMARY PT ADMITTED FOR DECLINING MENTAL STATE. PT TRIED TO BURN HOUSE DOWN. PT HAS HX OF PANCREATIC CANCER, HTN, COPD, T2DM, AND BPH. PT IS IND AND ABLE TO AMBULATE TO RESTROOM BY SELF. PT APPEARED TO SLEEP ON AND OFF. APPROPRIATE WITH CALL LIGHT. ABLE TO MAKE NEEDS KNOWN. PT TAKES MEDS WHOLE WITH WATER. PT IS AWAITING PLACEMENT. PT REFUSES INSULIN TREATMENT. BED IS IN LOW POSITION, RAILS TIMES TWO, AND CALL LIGHT IS WITHIN REACH.
[2024-12-13 07:52] VITALS: BP 130/83
[2024-12-13 15:32] VITALS: BP 123/72
[2024-12-13] MEDS ORDERED: MetFORMIN HCl 500 mg PO SCH (17:00)
[2024-12-13 19:24] VITALS: BP 145/79
--- NOTE | 2024-12-13 19:38 | NUR ---
[facility] [employer] VISITED FOR POSSIBLE PLACEMENT, PLEASANT TO CARE, EASILY CONFUSED AND BECOMES POARAQNOID AND IRRITATED. HARD TO REDIRECT, MEDICATED WITH OCY AND ATIVAN TODAY, REFUSED SQ INSULIN SHOTS, RECORDED BM ON 12/12/24, CALL LIGHT WITH IN REACH, REPORT GIVEN TO MATT ACKERMAN
[2024-12-14 04:40] VITALS: BP 162/94
--- NOTE | 2024-12-14 07:22 | NUR ---
SHIFT SUMMARY; PATIENT SLEPT IN LONG INTERVALS, MEDICATED WITH ATIVAN & OXY TWICE. DRANK ENSURE SHAKE DURING THE NIGHT.
[2024-12-14 08:07] VITALS: BP 151/89
--- NOTE | 2024-12-14 09:16 | NUR ---
CALNAYLA JUAREZ- PT REFUSING INSULIN, PT STATES HE IS DYING AND DOESN'T WANT INSULIN. SPOKE TO AND RECIEVED ORDERS TO DC BG CHECKS AND INSULIN
--- NOTE | 2024-12-14 16:33 | NUR ---
INITIAL PALLIATIVE CARE VISIT: MET WITH PT AND FAMILY ( AND SON) IN ROOM. PT APPEARS ANXIOUS AND HE IS TREMULOUS. HE IS ABLE TO STATE HIS PAIN LEVEL IS 9/10. CALL PLACED TO PRIMARY RN AND SHE STATED SHE HAD GIVEN OXYCODONE AT 1500 AND HE IS NOT DUE FOR MORE MEDICATION YET. DISCUSSED THE ISSUES THAT BROUGHT PT TO THE HOSPITAL. [facility] AND THEY WERE MANAGING PT SYMPTOMS AND TITRATING MEDICATIONS. PT STATED HE FELT LIKE PAIN AND CONFUSION DROVE HIM TO BECOME DESTRUCTIVE AND ATTEMPT TO START THE HOUSE ON FIRE. REPORTS HIS SYMPTOMS HAVE BEEN VERY DIFFICULT TO MANAGE. PT HAS TRIALED MANY MEDICATIONS INCLUDING GABAPENTIN, SEROQUEL AND OTHERS SHE CANNOT RECALL AT THE MOMENT. SUGGESTIONS MADE TO USE HALDOL AND PT AND SAID THEY WILL NOT ALLOW THAT MEDICATION TO BE USED FOR ANXIETY DUE TO THERE EXPERIENCE OF SEEING HOW IT AFFECTS PEOPLE. STATED BOTH HER AND HER WORKED AT THE [employer]. PT STATED HE WAS USING FENTANYL PATCHES 100 MCG WITH [employer] AND STATED HE HAS ONE ON HIS BACK. THIS RN PULLED UP THE BACK OF HIS SHIRT WITH HIS PERMISSION TO CHECK FOR PLACEMENT OF A PATCH AND INDEED ONE WAS FOUND ON HIS UPPER BACK THAT WAS ROLLED UP AND BARELY STICKING TO HIS SKIN. THIS RN REMOVED PATCH AND VERIFIED PATCH WITH PRIMARY RN KRISTIE BAKER. PT ALSO REPORTS HE HAS NERVE PAIN "ALL OVER" BUT DID NOT LIKE THE AFTER TASTE OF GABAPENTIN AND REFUSED TO TRIAL AGAIN. HE IS AGREEABLE TO TRYING LYRICA. PT ALSO REQUESTED EYE DROPS FOR DRY EYES. SUPPLIED PT WITH WET COOL WASH CLOTH TO PLACE OVER HIS EYES HE SEEMED A BIT ANXIOUS AND STATED HE WAS WARM. ALSO DISCUSSED COMFORT MEASURES TO BE PLACED. AND SON WILL CONSIDER. CALL PLACED TO DR. JUAREZ AND UPDATED HIM ON CONCERNS LISTED ABOVE. ORDERS PLACED FOR FENTANYL PATCH 100 MCG, EYE DROPS, LYRICA AND ONE TIME DOSE OF FENTANYL 50 MCG VIA IV FOR BREAKTHROUGH PAIN.
[2024-12-14] MEDS ORDERED: FentaNYL Citrate 50 MCG/ML 2 ML Injection IV ONE (16:50)
[2024-12-14 17:11] VITALS: BP 126/84
[2024-12-14] MEDS ORDERED: Artificial Tears Opth Oint 7 GM BOTHEYES PRN (17:30)
[2024-12-14] MEDS ORDERED: Peg 400/Hypromellose/Glycerin 15 DROP/ML BTL BOTHEYES PRN (18:00)
--- NOTE | 2024-12-14 19:43 | NUR ---
SHIFT SUMMARY- PT ALERT AND ORIENTED TO SELF AND FAMILY. HE HAS HAD A LOT OF C/O PAIN SINCE 1230. MEDICATED PRN FREQUENTLY. PT RESTARTED ON HIS HOME DOSE OF FENTANYL PATCH. HE HAD SOME TREMMORS AT THE TIME OF THE FENTANYL ADMINISTRATION SO HE WAS MEDICATED WITH PO ATIVAN, WITH GOOD EFFECT. PINK FOAM PLACED ON THE MATRESS AND A HEATING PAD WAS PLACED ON HIS BED WITH A SHEET BETWEEN IT AND THE PT. BEDSIDE REPORT COMPLETED WITH NIGHT RN, PT ALERT, STATES THE EARLIER MENTIONED INTERVENTIONS ARE HELPING WITH THE PAIN, NO CURRENT S&S OF DISTRESS NOTED.
[2024-12-14] MEDS ORDERED: SODIUM CHLORIDE OPTH BOTHEYES SCH (20:00)
[2024-12-14 20:17] VITALS: BP 141/76
[2024-12-14] MEDS ORDERED: Pregabalin 50 MG Capsule PO SCH (21:00)
[2024-12-15 03:16] VITALS: BP 135/79
[2024-12-15 08:10] VITALS: BP 142/65
--- NOTE | 2024-12-15 15:38 | NUR ---
SHIFT SUMMARY- PT ALERT AND ORIENTED TO SELF. INDEPENDENT IN THE ROOM. PT MEDICATED FOR PAIN SEVERAL TIMES T/O THE SHIFT. HE HAS BEEN RESTING COMFORTABLY FOR SEVERAL HOURS, WOKE HIM TO SEE IF HIS PAIN IS REALY WELL MANAGED IT APPEARS. THE PT DECLINED THE NEED FOR PAIN MEDS AT THIS TIME. PT IN BED RESTING NO S&S OF DISTRESS NOTED. DISCHAGRE IS PENDING PLACEMENT.
--- NOTE | 2024-12-15 16:38 | NUR ---
PALLIATIVE CARE VISIT: UPON ENTERING ROOM PT IS SITTING UP AT BEDSIDE. HE SMILES AND IS CONVERSING WITH HIS ALSO AT BEDSIDE. PT REPORTS PAIN IS MUCH BETTER. HE STATES LYRICA HAS HELPED WITH HIS PAIN. HE HAS HAD A BOWEL MOVEMENT TODAY. FAMILY REPORT HE WAS ABLE TO REST TODAY AND GET SOME SLEEP. REPORTS [facility] HER AND TOLD HER THEY HAVE AN OPEN BED FOR HIM NOW. PLAN WILL BE TO DISCHARGE TO [facility] AND RESUME [facility].
[2024-12-15 16:45] VITALS: BP 137/81
[2024-12-15 19:15] VITALS: BP 130/71
[2024-12-16 04:50] VITALS: BP 134/74
[2024-12-16 08:16] VITALS: BP 135/63
--- NOTE | 2024-12-16 13:30 | NUR ---
SHIFT SUMMARY AND DISCHARGE PATIENT ALERT AND INTERACTIVE BUT FORGETFUL AT TIMES. PATIENT HAS WORD SALAD AT TIMES AND HAS TROUBLES EXPRESSING THOUGHTS. PATIENT ABLE TO AMBULATE INDEPENDENTLY IN THE ROOM. PATIENT EATING AND DRINKING INDEPENDENTLY. PATIENT TRANSFERRED TO [facility] VIA WHEELCHAIR. BELONGINS SENT WITH PATIENT. TRANSFER PAPERS SENT WITH PATIENT.
--- NOTE | 2024-12-16 14:37 | NUR ---
PALLIATIVE CARE NOTE: [facility] COMPLETED WITH [facility] FOR TRANSPORT. [facility] CHOSE DNR, COMFORT MEASURES ONLY. SIGNED BY DR. JUAREZ AND PLACED ORIGINAL IN DISCHARGE PACKET FOR PT AND SCANNED TO [facility] REGISTRY. COPY SENT TO [facility].
== END 2024-12-16 13:55 ==
LOC: ER 13:34 → EOR 13:35 → MEDS 13:35
PROVIDERS: ADMIT Emergency Medicine
DX: G92.8 Other toxic encephalopathy (principal); C25.9 Malignant neoplasm of pancreas, unspecified; C79.31 Secondary malignant neoplasm of brain; N39.0 Urinary tract infection, site not specified; I10 Essential (primary) hypertension; E11.9 Type 2 diabetes mellitus without complications; J44.9 Chronic obstructive pulmonary disease, unspecified; N40.0 Benign prostatic hyperplasia without lower urinary tract symptoms; E89.0 Postprocedural hypothyroidism; Z66 Do not resuscitate; Z79.4 Long term (current) use of insulin; Z79.84 Long term (current) use of oral hypoglycemic drugs; Z79.85 Long-term (current) use of injectable non-insulin antidiabetic drugs; Z79.899 Other long term (current) drug therapy; Z88.2 Allergy status to sulfonamides; Z88.8 Allergy status to other drugs, medicaments and biological substances; Z90.49 Acquired absence of other specified parts of digestive tract
CPT/HCPCS: 36415; 70450; 80053; 80320; 81001; 82947; 85025; 86592; 87086; 93005; 93010; 96374; 96375; 96376; 99285-25; A9270; G0378; G0480; J1885; J3010